=== PATIENT | male | born 1975 | race Caucasian/White ===

== ENCOUNTER 2019-05-06 13:55 | Outpatient (CLI) | payer BC ==
--- NOTE | 2019-05-06 14:15 | RAD ---
EXAM: Right foot: 3 views INDICATIONS: Cellulitis of right foot COMPARISON: None. FINDINGS: Postop changes involving the first metatarsal. 2 screws transfix the proximal first metatar brian. One of these screws appear to be fractured. Tarsals appear intact. Metatarsals and phalanges appear intact. Mild degenerative changes seen. No fo bandar lysis or destructive process. IMPRESSION: No evidence of osteomyelitis.
== END 2019-05-06 13:56 | disposition home or self-care (01) ==
LOC: NAV RAD 13:55
PROVIDERS: ATTEND Family Medicine
DX: S91.341A Puncture wound with foreign body, right foot, initial encounter (principal); L03.115 Cellulitis of right lower limb

== ENCOUNTER 2019-09-05 14:16 | Outpatient (CLI) | payer BC ==
--- NOTE | 2019-09-05 14:43 | RAD ---
XR Knee Lt 4 View STANDARD: 09/05/2019 2:28 PM CLINICAL INDICATION: Arthritis COMPARISON: None. FINDINGS: Bones: There is mild osteophytes involving the patellofemoral compartment. Joints: Mediolateral femoral tibial joint compartments are preserved.. Soft Tissue: No acute abnormality.. IMPRESSION: Mild osteoarthrosis of the left knee predominantly in the patellofemoral compartment..
== END 2019-09-05 14:17 | disposition home or self-care (01) ==
LOC: NAV RAD 14:16
PROVIDERS: ATTEND Family Medicine
DX: M17.12 Unilateral primary osteoarthritis, left knee (principal)